=== PATIENT | female | born 1950 | race African-American/Black ===

== ENCOUNTER 2021-04-06 21:26 | Inpatient (IN) | payer MEDICARE, MEDICAID ==
[~2021-04-06] VITALS: Ht 165.1 cm; Wt 116.1 kg
[2021-04-06] MEDS ORDERED: ASPIRIN 81MG TABLET PO ONE (22:15)
[2021-04-06 23:34] LABS: BASOPHILS % 0.4 % (0.0-2.0); HEMATOCRIT. 37.7 % (36.0-48.0); HEMOGLOBIN. 12.5 g/dL (12.0-16.0); LYMPHOCYTES % 38.5 % (20.0-50.0); MEAN CORPUSCULAR HEMOGLOBIN 32.3 pg (28.0-32.0); MEAN CORPUSCULAR VOLUME 97.5 fL (81.0-99.0); MONOCYTES % 8.4 % (2.0-8.0); NEUTROPHILS % 50.7 % (40.0-76.0); PLATELET 138 x1000/uL (130-400); RED BLOOD CELL COUNT 3.87 mill/uL (4.2-5.4); RED CELL DISTRIBUTION WIDTH 13.6 % (11.6-14.6)
[2021-04-06 23:48] LABS: CHLORIDE 104 mEq/L (98-107)
[2021-04-07] MEDS ORDERED: ENOXAPARIN 40MG/0.4ML SYR SUBCUT SCH (03:00)
[2021-04-07] MEDS ORDERED: MAGNESIUM/ALUMINUM HYDROXIDE/SIMETHICONE 30ML UDC PO PRN (03:00)
[2021-04-07] MEDS ORDERED: CLONIDINE 0.1MG TABLET PO PRN (03:00)
[2021-04-07] MEDS ORDERED: ACETAMINOPHEN 325MG TABLET PO PRN (03:00)
[2021-04-07] MEDS ORDERED: ONDANSETRON HCL 4MG/2ML INJ IV PRN (03:00)
[2021-04-07] MEDS ORDERED: DOCUSATE SODIUM 100MG CAPSULE PO PRN (03:00)
[2021-04-07] MEDS ORDERED: GUAIFENESIN 200MG/10ML SUGAR FREE UDC PO PRN (03:00)
[2021-04-07] MEDS ORDERED: HYDROCODONE/ACETAMINOPHEN 5/325MG TABLET PO PRN (03:00)
[2021-04-07] MEDS ORDERED: NALOXONE HCL 0.4 MG/ML 1ML VIAL IV PRN (04:00)
[2021-04-07 06:50] LABS: CREATINE KINASE 136 IU/L (26-192)
[2021-04-07] MEDS: AMLODIPINE 10MG TABLET PO SCH (09:15)
[2021-04-07] MEDS: ENOXAPARIN 40MG/0.4ML SYR SUBCUT SCH ×2 (09:16→20:48)
[2021-04-07] MEDS: METOPROLOL TARTRATE 25MG TABLET PO SCH ×2 (09:16→20:56)
[2021-04-07 15:51] VITALS: BP 123/56
[2021-04-07 16:00] VITALS: BP 123/56
[2021-04-07] MEDS ORDERED: ATEN-42 PO (16:10)
[2021-04-07] MEDS ORDERED: SIMV10TA2 PO (16:11)
[2021-04-07] MEDS ORDERED: ALLO100T PO (16:13)
[2021-04-07] MEDS ORDERED: FURO40TA5 PO (16:13)
[2021-04-07] MEDS ORDERED: NITR0.4T SL (16:14)
[2021-04-07] MEDS ORDERED: TRAM100T40 (16:14)
[2021-04-07 17:15] LABS: CREATINE KINASE 161 IU/L (26-192)
[2021-04-07 20:00] VITALS: BP 113/50
[2021-04-07] MEDS: NITROGLYCERIN 0.4MG TABLET SL SL PRN ×2 (20:48→20:55)
[2021-04-08] VITALS: BP 132/56
[2021-04-08 04:00] VITALS: BP 123/60
[2021-04-08 06:21] LABS: BASOPHILS % 0.3 % (0.0-2.0); EOSINOPHILS % 2.7 % (0.0-5.0); HEMATOCRIT. 38.7 % (36.0-48.0); HEMOGLOBIN. 12.6 g/dL (12.0-16.0); LYMPHOCYTES % 46.9 % (20.0-50.0); MEAN CORPUSCULAR HEMOGLOBIN 32.3 pg (28.0-32.0); MEAN CORPUSCULAR VOLUME 99.5 fL (81.0-99.0); MEAN PLATELET VOLUME 9.6 fl (7.4-10.4); MONOCYTES % 10.3 % (2.0-8.0); NEUTROPHILS % 39.8 % (40.0-76.0); PLATELET 171 x1000/uL (130-400); RED BLOOD CELL COUNT 3.89 mill/uL (4.2-5.4); RED CELL DISTRIBUTION WIDTH 13.7 % (11.6-14.6)
[2021-04-08 06:53] LABS: CHLORIDE 103 mEq/L (98-107)
[2021-04-08 07:00] LABS: LDL CHOLESTEROL 95 mg/dL (5-100)
[2021-04-08 07:01] LABS: HDL CHOLESTEROL 50 mg/dL (40-59)
[2021-04-08 08:00] VITALS: BP 131/64
[2021-04-08] MEDS: ENOXAPARIN 40MG/0.4ML SYR SUBCUT SCH (09:14)
[2021-04-08] MEDS: METOPROLOL TARTRATE 25MG TABLET PO SCH (09:14)
[2021-04-08] MEDS: AMLODIPINE 10MG TABLET PO SCH (09:14)
[2021-04-08] MEDS: ALLOPURINOL 100 MG TABLET PO SCH (10:07)
[2021-04-08] MEDS: FUROSEMIDE 40MG TABLET PO SCH (10:07)
[2021-04-08 12:00] VITALS: BP 137/70
[2021-04-08] MEDS: ASPIRIN 81MG EC TABLET PO SCH (12:28)
[2021-04-08 16:00] VITALS: BP 110/59
[2021-04-08 20:00] VITALS: BP 141/61
[2021-04-08] MEDS: METOPROLOL TARTRATE 50MG TABLET PO SCH (20:45)
[2021-04-08] MEDS: ENOXAPARIN 30MG/0.3ML SYR SUBCUT SCH (20:45)
[2021-04-09] VITALS (7 sets, daily range): BP systolic 123–134; BP diastolic 49–63
[2021-04-09] MEDS: METOPROLOL TARTRATE 50MG TABLET PO SCH ×2 (09:00→21:00)
[2021-04-09] MEDS: ENOXAPARIN 30MG/0.3ML SYR SUBCUT SCH ×2 (09:18→21:00)
[2021-04-09] MEDS: ASPIRIN 81MG EC TABLET PO SCH (09:26)
[2021-04-09] MEDS: FUROSEMIDE 40MG TABLET PO SCH (09:26)
[2021-04-09] MEDS: AMLODIPINE 10MG TABLET PO SCH (09:26)
[2021-04-09] MEDS: ALLOPURINOL 100 MG TABLET PO SCH (09:29)
== END 2021-04-09 23:45 | disposition home health service (06) | DRG 206 ==
LOC: ER 21:26 → 8WST 04-07 00:48 → ENRESERV 04-07 14:06
PROVIDERS: ADMIT Hospitalist; ATTEND Hospitalist
DX: M94.0 Chondrocostal junction syndrome [Tietze] (principal); D68.59 Other primary thrombophilia; Z68.41 Body mass index [BMI] 40.0-44.9, adult; E66.9 Obesity, unspecified; I10 Essential (primary) hypertension; I25.10 Atherosclerotic heart disease of native coronary artery without angina pectoris; E78.5 Hyperlipidemia, unspecified; I48.0 Paroxysmal atrial fibrillation; I49.5 Sick sinus syndrome; M10.9 Gout, unspecified; R73.03 Prediabetes; Z95.0 Presence of cardiac pacemaker; Z79.899 Other long term (current) drug therapy
CPT/HCPCS: 36415; 71045; 80053; 80061; 82550; 83036; 83880; 84484; 85025; 93005; 93306; 99291; A6261; J1650